=== PATIENT | male | born 1945 | race African-American/Black ===

== ENCOUNTER 2024-01-18 07:47 | Day surgery (SDC) | payer OTHER ==
[~2024-01-18] VITALS: Ht 167.6 cm; Wt 81.6 kg
[2024-01-18] MEDS ORDERED: SIMETHICONE 40 MG/0.6 ML ML ONE (08:09)
[2024-01-18] MEDS ORDERED: MIDAZOLAM HCL 5 MG/5 ML VIAL ONE (08:10)
[2024-01-18] MEDS ORDERED: MEPERIDINE 100 MG INJ. 100 MG/ML VIAL ONE (08:10)
[2024-01-18 14:49] VITALS: O2SAT 100
[2024-01-18 16:59] VITALS: BP_SYST 127; PULSE 70; RESP 16
== END 2024-01-18 11:50 | disposition home or self-care (01) ==
LOC: SDS 07:47 → SMU 07:59 → SDS 11:50
PROVIDERS: ATTEND Internal Medicine Gastroenterology
DX: Z12.11 Encounter for screening for malignant neoplasm of colon (principal); K64.8 Other hemorrhoids; E78.5 Hyperlipidemia, unspecified; E03.9 Hypothyroidism, unspecified; Z79.890 Hormone replacement therapy; Z79.899 Other long term (current) drug therapy; Z96.641 Presence of right artificial hip joint; Z98.890 Other specified postprocedural states; Z86.010 Personal history of colon polyps
CPT/HCPCS: 45378; 99152; 99153; G0378; J2250; J2175